=== PATIENT | female | born 2000 ===

== ENCOUNTER 2021-05-24 10:53 | Emergency (ER) | payer OTHER ==
[2021-05-24 11:38] LABS: HEMOGLOBIN 13.3 gm/dl (12.3-15.3); RED BLOOD COUNT 4.37 M/UL (4.00-5.10); WHITE BLOOD COUNT 7.7 K/UL (4.5-11.0)
[2021-05-24 12:00] LABS: BUN/CREATININE RATIO 14 (0-10)
[2021-05-24] MEDS ORDERED: NAPROXEN500 MG PO (12:19)
== END 2021-05-24 12:27 | disposition home or self-care (01) ==
LOC: ER1 10:53
PROVIDERS: Physician Assistant Medical
DX: R07.89 Other chest pain (principal)
CPT/HCPCS: 71046; 80053; 82550; 82553; 83874; 84484; 85025; 93005; 96374; 99285; J1885